=== PATIENT | male | born 1960 | race Caucasian/White ===

== ENCOUNTER → 2017-01-28 | Outpatient (CLI) | payer OTHER ==
[~2017-01-28] MED LIST: AMOX500C2 PO; CATHETER FLUSH 10 ML SYR IV PRN; HYDR1TAB PO; LISI10TA PO; REGADENOSON 0.4 MG/5 ML SYR (LEXISCAN) IV ONE; TEST75GE3 TD
[2017-01-28 13:45] VITALS: BP 138/84
[2017-01-28 13:48] VITALS: BP 154/89
--- NOTE | 2017-01-30 14:09 | STRESS TEST ---
DATE OF SERVICE: 01/28/2017 RESTING AND POST REGADENOSON TECHNETIUM 99M TETROFOSMIN SPECT CT IMAGING ORDERING PHYSICIAN: Elayne Burrell APRN PRIMARY PHYSICIAN: Dr. Valencia. CLINICAL DIAGNOSES: Chest discomfort, hypertension, shortness of breath. Baseline images were carried out after injection of 10.91 mCi of technetium-99m Tetrofosmin. This was followed by 0.4 mg regadenoson and 29.1 mCi of technetium-99m Tetrofosmin for stress imaging. The electrocardiogram showed sinus rhythm at baseline. During the study, isolated premature ventricular contractions were seen. These persisted in the recovery phase. The patient reported slight chest pressure and some headache following regadenoson infusion, which resolved in a few minutes. Overall, the patient tolerated the procedure well. Review of images at rest and following stress does not indicate any significant perfusion defects consistent with significant myocardial ischemia or infarction. Gated images show normal global left ventricular systolic function with left ventricular ejection fraction of 52%. Left ventricular end diastolic volume is 132 mL. TID is absent (1.03). CONCLUSIONS: 1. No evidence of any significant myocardial ischemia or infarction on this study. 2. Well preserved global left ventricular systolic function with ejection fraction of 52%. 3. No significant regional wall motion abnormalities seen on this study. 4. Mild to moderate cardiomegaly is suggested on this study. Job ID: [id number] DocumentID: [id number] Dictated Date: 01/30/2017 12:27:52 [employer] Date: 01/30/2017 13:07:20 Dictated By: INDU CAMPBELL MD, MA, FACP, FACC,
== END ==
LOC: CARD 11:53
PROVIDERS: ATTEND Nurse Practitioner Family
DX: E78.2 Mixed hyperlipidemia (principal); I10 Essential (primary) hypertension; R07.89 Other chest pain; R00.2 Palpitations; R06.02 Shortness of breath; Z82.49 Family history of ischemic heart disease and other diseases of the circulatory system
CPT/HCPCS: 78452; 93017

== ENCOUNTER → 2017-03-19 | Outpatient (CLI) | payer OTHER ==
[~2017-03-19] MED LIST changes: +IOHEXOL 350 MG/ML 150 ML (OMNIPAQUE 350) VIAL IV ONE; +NS 100 ML (IVPB) BAG IV ONE; -REGADENOSON 0.4 MG/5 ML SYR (LEXISCAN) IV ONE
[2017-03-19 09:58] LABS: ANION GAP 8 MMOL/L (5-14); BLOOD UREA NITROGEN 27 MG/DL (7-18); BUN/CREATININE RATIO 25; CALCIUM 9.2 MG/DL (8.5-10.1); CARBON DIOXIDE 28 MMOL/L (21-32); CHLORIDE 103 MMOL/L (98-107); CREATININE SERUM 1.06 MG/DL (0.60-1.30); GFR ESTIMATED > 60; GLUCOSE 112 MG/DL (70-105); POTASSIUM 4.2 MMOL/L (3.6-5.0); SODIUM 139 MMOL/L (135-145)
--- NOTE | 2017-03-19 16:23 | Diagnostic Imaging Report ---
PROCEDURE: CT angiography of the chest with contrast. TECHNIQUE: Multiple contiguous axial images were obtained through the chest after uneventful bolus administration of intravenous contrast. Reconstructed CTA MIP acquisitions were also performed. INDICATION: Thoracic aortic aneurysm. 125 mL of Omnipaque 350 is administered intravenously. FINDINGS: The aortic root is dilated measuring 4.8 cm in diameter, measured on the coronal images. The ascending aorta is also dilated measuring 4.3 cm. The aortic arch is ectatic measuring 3 cm in caliber and the descending aorta is normal in caliber. There is no dissection. The pulmonary arteries demonstrate normal opacification with no filling defects seen to suggest pulmonary embolism. The heart size is mildly enlarged. No significant pleural or pericardial effusion. The mediastinum and karishma and axillae appear unremarkable. The lungs demonstrate no significant consolidation, mass or suspicious nodule. The osseous structures demonstrate mild degenerative changes. There are deformities with fusion of upper right ribs anteriorly, this could be congenital or related to old injury. There are multiple gallstones seen without CT evidence of cholecystitis. There is a small hiatal hernia. IMPRESSION: 1. There is aneurysmal dilatation of the aortic root at 4.8 cm and of the mid ascending aorta at 4.3 cm. 2. Small hiatal hernia. 3. Multiple gallstones. Dictated by: Dictated on workstation # [id number]
== END ==
LOC: RAD 09:28
PROVIDERS: ATTEND Nurse Practitioner Family
DX: I71.2 Thoracic aortic aneurysm, without rupture (principal); K44.9 Diaphragmatic hernia without obstruction or gangrene; K80.20 Calculus of gallbladder without cholecystitis without obstruction
CPT/HCPCS: 36415; 71275; 80048